=== PATIENT | female | born 1970 | race Caucasian/White ===

== ENCOUNTER 2016-10-23 00:03 | Inpatient (IN) | payer OTHER ==
--- NOTE | ~2016-10-23 | PN ---
Unit #: [id number] #: [id number] Patient: KLARISSA MORELAND [id number] [facility] [address] [place] [address] [id number] I MR#: [id number] NAME: KLARISSA MORELAND ROOM: P209 Age: 46 Sex: F Admission Date: 10/23/2016 : 1970 Attending Physician: Yang Christianson M.D. Admitting Physician: Yang Christianson M.D. Primary Care Physician: Primary Care Physician Sissy ALCARAZ PROGRESS NOTES DATE 10/24/2016 DISCUSSION The patient continues to complain of severely depressed mood and poor sleep. She is voicing ongoing suicidal ideation. We will begin upward titration of Topamax today. Dictated by... Yang Christianson M.D. CB/andrea TD: 10/24/2016 15:09 JOB #: [id number] [facility] PROGRESS NOTES X Yang Christianson MD PROGRESS NOTE
--- NOTE | ~2016-10-23 | PN ---
Unit #: [id number] #: [id number] Patient: KLARISSA MORELAND [id number] [facility] [address] [place] [address] [id number] I MR#: [id number] NAME: KLARISSA MORELAND ROOM: P205 Age: 46 Sex: F Admission Date: 10/23/2016 : 1970 Attending Physician: Yang Christianson M.D. Admitting Physician: Yang Christianson M.D. Primary Care Physician: Primary Care Physician Sissy ALCARAZ PROGRESS NOTES DATE 10/29/2016 DISCUSSION The patient is a bit brighter today and states that she slept better last evening. She is more active in the therapeutic milieu and is reporting reduction in suicidal ideation. She is hopeful that she will qualify for residential chemical dependence treatment but states that she will be ready for discharge tomorrow whatever the case. Dictated by... Yang Christianson M.D. CB/rodríguez TD: 10/29/2016 14:19 JOB #: [id number] [facility] PROGRESS NOTES X Yang Christianson MD PROGRESS NOTE
--- NOTE | ~2016-10-23 | DS ---
Unit #: [id number] #: [id number] Patient: KLARISSA MORELAND [id number] [place] [address] [id number] MR#: [id number] NAME: KLARISSA MORELAND. ROOM: P205 Age: 46 Sex: F Admission Date: 10/23/2016 : 1970 Discharge Date: 10/30/2016 Attending Physician: Yang Christianson M.D. Primary Care Physician: Primary Care Physician No DISCHARGE SUMMARY REASON FOR ADMISSION The patient is a 46-year-old white female, admitted to the [address] [place] [address] unit with a history of depression and ongoing abuse of alcohol. HOSPITAL COURSE The patient was admitted to the [address] [place] [address] unit and gradually restarted on previously prescribed medications including Topamax and Sinequan. Her detox was an uneventful one, but she remained seclusive to room throughout much of her stay in the hospital complaining of severely depressed mood. She was encouraged to increase participation within therapeutic milieu and hopes of advancing her sleep-wake cycle. She was begun on melatonin 5 mg at 6:00 p.m. The patient seemed to do better with this medication change and by 10/30/2016 was in brighter spirits. She requested discharge on that date and was agreeable with plan for followup in the chemical dependency intensive outpatient program provided by this facility. Discharge was ordered. FINAL DIAGNOSES Alcohol use disorder, dysthymic disorder. DISPOSITION ON DISCHARGE The patient is discharged on the following medications; Topamax 150 mg b.i.d. for anxiety and Sinequan 25 mg at h.s. for insomnia. DISCHARGE INSTRUCTIONS No dietary or physical restrictions were placed on the patient at the time of discharge. FOLLOWUP Followup will take place through the auspices of community mental health resources and she will be referred to the chemical dependency intensive outpatient program. PROGNOSIS Her prognosis is considered fair. Dictated by... Yang Christianson M.D. MAYE/ronel TD: 10/30/2016 22:31 Unit #: [id number] #: [id number] Patient: KLAIRSSA MORELAND JOB #: [id number] DISCHARGE SUMMARY X Yang Christianson MD DISCHARGE SUMMARY
--- NOTE | ~2016-10-23 | PN ---
Unit #: [id number] #: [id number] Patient: KLARISSA MORELAND [id number] [facility] [address] [place] [address] [id number] I MR#: [id number] NAME: KLARISSA MORELAND ROOM: P205 Age: 46 Sex: F Admission Date: 10/23/2016 : 1970 Attending Physician: Yang Christianson M.D. Admitting Physician: Yang Christianson M.D. Primary Care Physician: Primary Care Physician Sissy ALCARAZ PROGRESS NOTES DATE 10/27/2016 DISCUSSION The patient continues to complain of poor sleep but is frequently napping. I will go ahead and increase her Topamax to her previous dose of 150 mg twice daily and we will add a dose of melatonin at 6 p.m. in hopes of advancing the patient's sleep like cycle. Dictated by... Yang Christianson M.D. CB/samia TD: 10/28/2016 01:38 JOB #: [id number] [facility] PROGRESS NOTES X Yang Christianson MD PROGRESS NOTE
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
--- NOTE | ~2016-10-23 | PN ---
Unit #: [id number] #: [id number] Patient: KLARISSA MORELAND [id number] [facility] [address] [place] [address] [id number] I MR#: [id number] NAME: KLARISSA MORELAND ROOM: P205 Age: 46 Sex: F Admission Date: 10/23/2016 : 1970 Attending Physician: Yang Christianson M.D. Admitting Physician: Yang Christianson M.D. Primary Care Physician: Primary Care Physician Sissy VYAS NOTES DATE 10/26/2016 DISCUSSION The patient is abed resting comfortably today. Staff reports no issues with withdrawal, and the patient does seem to have slept better with initiation of increased Seroquel. Dictated by... Yang Christianson M.D. CB/rodrígeuz TD: 10/26/2016 13:23 JOB #: [id number] LISSA PROGRESS NOTES X Yang Christianson MD PROGRESS NOTE
--- NOTE | ~2016-10-23 | HP ---
Unit #: [id number] #: [id number] Patient: KLARISSA MORELAND [id number] [place] [address] [id number] MR#: [id number] NAME: KLARISSA MORELAND ROOM: P209 Age: 46 Sex: F Admission Date: 10/23/2016 : 1970 Attending Physician: Yang Christianson M.D. Admitting Physician: Yang Christianson M.D. Primary Care Physician: Primary Care Physician No HISTORY AND PHYSICAL HISTORY OF PRESENT ILLNESS Klarissa is a 46 year old admitted to [address] [place] [address] because of her continued abuse of alcohol. She has had other admissions to this facility for the same. PAST MEDICAL HISTORY 1. Long history of alcohol abuse. 2. High blood pressure. PAST SURGICAL HISTORY 1. Fractured left forearm with ORIF. 2. Tubal ligation. ALLERGIES No known drug allergies. SOCIAL HISTORY Smokes 1 pack per day. Drinks at least a fifth of liquor on a daily basis and admits to using marijuana on occasion. FAMILY HISTORY Medically noncontributory. REVIEW OF SYSTEMS CONSTITUTIONAL: No fever or chills. HEENT: Denies any sore throat, ear pain or runny nose. CARDIOVASCULAR: Denies chest pain, irregular heart rhythm or palpitations. CHEST: Denies shortness of breath or cough. No hemoptysis. GASTROINTESTINAL: Denies nausea, vomiting, diarrhea or chronic constipation. ENDOCRINE: Denies history of increased thirst or urination. No recent significant weight loss or gain. GENITOURINARY: Denies dysuria, frequency, or hematuria. SKIN: Denies any rashes. HEMATOLOGIC: Denies history of increased bleeding or bruising. MUSCULOSKELETAL: Denies any hot, swollen joints. No generalized muscle pain. NEUROLOGIC: Denies problems with vision or speech. No frequent, severe headaches. No numbness, tingling or weakness in any extremities. Denies loss of bladder or bowel control. CURRENT MEDICATIONS 1. Detox protocol. 2. Multivitamin 1 daily. Unit #: [id number] #: [id number] Patient: KLARISSA MORELAND 3. Levaquin 500 mg daily x7 days. PHYSICAL EXAMINATION GENERAL: Alert, well-nourished, in no apparent distress. VITAL SIGNS: Blood pressure 120/70, heart rate 80, respirations 16, temperature 98.6. WEIGHT: 140. HEIGHT: 5 feet 2 inches. SKIN: Warm and dry without rash or lesion. HEENT: Normocephalic. TMs not viewed. Oral and nasal passages clear. Conjunctivae clear. PERRLA. EOMs intact. Right pinna and canal with dry, red, irritated skin. NECK: Supple without lymphadenopathy or thyromegaly. HEART: Regular rate and rhythm without murmur. LUNGS: Clear. ABDOMEN: Soft, nontender. : Not done. EXTREMITIES: No evidence of cyanosis, clubbing or edema. Moves all without focal deficit. NEUROLOGICAL: Grossly within normal limits. Cranial Nerves: II: Visual wilkins are intact. III, IV AND : Extraocular movements are intact. Pupils are equal, round and reactive to light. V: Facial sensation is grossly normal. VII: Facial movements and expression are normal. VIII: Auditory acuity grossly intact. IX, X: Uvula is midline. Phonation is normal. XI: Patient shrugs shoulders and turns head normally. XII: Tongue protrudes in the midline. Sensory and Motor Function: Sensory and motor sensation is grossly normal. Motor: moves all extremities well. Coordination: Gait is normal. Deep Tendon Reflexes: Intact. IMPRESSION 1. Psychiatric admission. 2. Alcohol abuse. 3. Cellulitis, right ear. RECOMMENDATIONS PSYCHIATRIC: Per psychiatrist. MEDICAL: 1. See no contraindications to participate in facility's activities. 2. Detox per protocol. 3. Continue Levaquin. MEDICAL PROGNOSIS Good. MEDICAL CONDITION Stable. Dictated by... Courtney IrelandACiara-Frederic. for [facility]/formerly [facility] Unit #: [id number] #: [id number] Patient: KLARISSA MORELAND TD: 10/23/2016 17:44 JOB #: [id number] HISTORY AND PHYSICAL X Gemma Rodgers HISTORY AND PHYSICAL
--- NOTE | ~2016-10-23 | PA ---
Unit #: [id number] #: [id number] Patient: KLARISSA MORELAND [id number] [place] [address] [id number] I MR#: [id number] NAME: KLARISSA MORELAND ROOM: P209 Age: 46 Sex: F Admission Date: 10/23/2016 : 1970 Date of Assessment: 10/23/2016 Attending Physician: Yang Christianson M.D. Admitting Physician: Yang Christianson M.D. Primary Care Physician: Primary Care Physician No PSYCHIATRIC ASSESSMENT IDENTIFYING INFORMATION The patient is a 46-year-old white female admitted to the [facility] with recurrent suicidal ideation and alcohol use. CHIEF COMPLAINT None given. INFORMANT(S) Patient, reliability is fair. HISTORY OF PRESENT ILLNESS The patient is a 46-year-old white female last cared for at this facility by Dr. Jigar Macdonald in 2014. She is admitted with recurrent alcohol use, suicidal ideation, and states that she has been off prescribed medications for some time. The patient had previously been prescribed Topamax and had done well on this medication but has been off medication since April secondary to her having "lost her passport." The patient reports current suicidal ideation related to her homeless status. She states that she is drinking about 1 to 2 fifths of hard liquor on a daily basis. She denies abuse of other psychoactive substances. For more complete history of present illness, please refer to previously dictated notes. PAST PSYCHIATRIC HISTORY Reviewed, no changes. PAST MEDICAL HISTORY Reviewed, no changes. MEDICATION Levaquin for urinary tract infection. ALLERGIES Latex. FAMILY HISTORY Reviewed, no changes. SOCIAL HISTORY Reviewed, no changes. MENTAL STATUS EXAMINATION Examination at this time reveals the patient to be an obese white female Unit #: [id number] #: [id number] Patient: KLARISSA MORELAND appearing stated age. She is in no apparent physical distress at the time of examination. She is awake, alert, and oriented in all spheres. Her mood is mildly dysphoric, her affect constricted. Speech is generally well coherent. No gross deficits in memory or cognition noted. Intelligence is judged to be in the average range, based on fund of knowledge. The patient is cooperative throughout the interview. She is currently endorsing positive suicidal ideation. She denies homicidal ideation. She denies any psychotic symptoms. Her judgment and insight appear to be intact. ASSETS AND LIABILITIES The patient's assets: Motivation for change. Liabilities: Lack of resources. DIAGNOSTIC IMPRESSION 1. Alcohol use disorder. 2. Dysthymic disorder. 3. Urinary tract infection. TREATMENT PLAN The patient remains hospitalized for safety and stabilization. Suicide precautions remain in place, and we have initiated a routine detoxification protocol for alcohol. I will restart the patient's previously prescribed Focalin. She will participate in appropriate order of milieu activities. ESTIMATED LENGTH OF STAY 5 to 7 days. Dictated by... Yang Christianson M.D. Pita TD: 10/23/2016 13:55 JOB #: [id number] PSYCHIATRIC ASSESSMENT X Yang Christianson MD X PSYCHIATRIC ASSESSMENT
--- NOTE | ~2016-10-23 | PN ---
Unit #: [id number] #: [id number] Patient: KLARISSA MORELAND [id number] [facility] [address] [place] [address] [id number] I MR#: [id number] NAME: KLARISSA MORELAND ROOM: P205 Age: 46 Sex: F Admission Date: 10/23/2016 : 1970 Attending Physician: Yang Christianson M.D. Admitting Physician: Yang Christianson M.D. Primary Care Physician: Primary Care Physician Sissy ALCARAZ PROGRESS NOTES DATE 10/28/2016 DISCUSSION The patient reports worsening depression today and reports increasing suicidal ideation. I will increase her suicidal precautions to SP2 and may consider addition of any antidepressant medication though we have at this point just restarted the patient's Topamax at its previously affective dose. She exhibits no signs or symptoms of withdrawal. Dictated by... Yang Christianson M.D. CB/samia TD: 10/28/2016 20:04 JOB #: [id number] [facility] PROGRESS NOTES X Yang Christianson MD PROGRESS NOTE
[~2016-10-23 00:03] MED LIST: AMOXICILLIN PO; AUGMENTIN PO; BENZONATATE PO; CELEXA PO; CIPRO PO; CIPRODEX OTIC7.5 ML OT; FERGON240 ( 27 ) PO; FLOXIN10 ML OT; FLOXIN20 EA AD; IBUPROFEN PO; IBUPROFEN600 MG PO; LEVAQUIN PO; LISINOPRIL10 MG PO; LORTAB 10-5001 EACH PO; LORTAB 5/500 TA1 TA1 PO; LORTAB 5/500 TA1 TA2 PO; MOBIC PO; NO MEDICATIONS; PREDNISONE PO; PREDNISONE10 MG/DOSE PO; PROVERA PO; TOPAMAX PO; TRAZODONE PO; TYLOX 5/500 CAP1 CAP PO; ULTRAM PO; VICODIN 5/500 T1 TAB PO; VOLTAREN75 MG PO; ZANTAC150 MG PO
== END 2016-10-30 19:20 | disposition home or self-care (01) | DRG 897 ==
LOC: P2S 00:03
PROC: HZ2ZZZZ Detoxification Services for Substance Abuse Treatment (ICD-10-PCS; principal; 2016-10-23)
DX: F10.20 Alcohol dependence, uncomplicated (principal); I85.00 Esophageal varices without bleeding; R45.851 Suicidal ideations; N39.0 Urinary tract infection, site not specified; F34.1 Dysthymic disorder; I10 Essential (primary) hypertension; F17.200 Nicotine dependence, unspecified, uncomplicated; H60.11 Cellulitis of right external ear; G47.00 Insomnia, unspecified; K70.30 Alcoholic cirrhosis of liver without ascites; Z79.899 Other long term (current) drug therapy
CPT/HCPCS: 86592

== ENCOUNTER 2016-11-12 21:54 | Emergency (ER) | payer OTHER ==
--- NOTE | ~2016-11-12 | CT114 ---
[facility] A Service of [facility] RADIOLOGY TEXT RESULTS PATIENT: KLARISSA MORELAND LOCATION: [place] : [birth year] UNIT #: [id number] AGE: [address]: Foster Turner MD SEX: F ORDER DR: [id number] [facility] [address] [place], [place] [address] [id number] MR#: [id number] Acc #: [id number] NAME: KLARISSA MORELAND : 1970 SEX: F STUDY DATE/TIME: 11/13/2016 3:12 UNIT: [place] ROOM: STUDY DESCRIPTION: CT Soft Tissue Neck W Cont Attending Physician: Foster Turner M.D. Ordering Physician: Douglas Ortega D.O. Primary Care Physician: Primary Care Physician No MEDICAL IMAGING REPORT This report is preliminary unless electronic signature is present EXAM CT soft tissue neck with contrast 11/13/2016 HISTORY 46-year-old female in the ED with new onset right-side neck pain, swelling, cellulitis, beginning earlier this morning. TECHNIQUE CT examination of the neck with IV contrast from the skull base through the thoracic inlet. Multiplanar images were reconstructed. This CT examination was performed with one or more of the following radiation dose reduction techniques: automatic exposure control, adjustment of mA and/or kV according to patient size, and iterative reconstruction. FINDINGS The examination shows evidence of subcutaneous inflammation in the submental portion of the neck below the floor of the mouth, including skin thickening and subcutaneous soft tissue stranding. However, there is no visible abscess. There is no obvious source for this inflammation, such as odontogenic bony destructive process, sialadenitis or peritonsillar or pharyngeal abscess. Mildly enlarged lymph nodes throughout the upper neck, particularly in the submandibular region are nonspecific but likely inflammatory. The palatine tonsils are slightly enlarged. Salivary glands and thyroid gland are normal in size and appearance. IMPRESSION CT findings suggesting at least mild cellulitis in the midline submental neck below the floor of the mouth as described above. No abscess or other soft tissue fluid collection is demonstrated at this time. There is no obvious odontogenic source for infection, but correlation with dental and oral findings on physical exam is recommended. There is no evidence of acute sialadenitis. The palatine tonsils are mildly enlarged, and there is mild submandibular region adenopathy that is likely reactive. [facility] A Service of [facility] RADIOLOGY TEXT RESULTS PATIENT: KLARISSA MORELAND LOCATION: [facility] : [birth year] UNIT #: [id number] AGE: [address]: Foster Turner MD SEX: F ORDER DR: Dictated by... Charlie Camara M.D. THIS IS AN ELECTRONICALLY VERIFIED REPORT Charlie Camara M.D. at 11/13/2016 10:06 PM BEBA/frederick TD: 11/13/2016 13:24 JOB #: [id number] MEDICAL IMAGING REPORT Page 1 of 1 COPY
[2016-11-12 23:09] LABS: AMPHETAMINE POS (NEG); BARBITURATES NEG (NEG); BENZODIAZEPINES NEG (NEG); COCAINE NEG (NEG); MARIJUANA POS (NEG); OPIATES NEG (NEG); TRICYCLIC ANTIDEPRESSANTS NEG (NEG); U METHADONE NEG (NEG)
[2016-11-13 01:24] LABS: BASOPHIL% 0.3 % (0-2.5); EOSINOPHIL# 0.2 X10e3 (0-0.7); EOSINOPHIL% 1.8 % (0.0-7.0); HEMATOCRIT 29.5 % (35.0-45.0); HEMOGLOBIN 9.1 gm/dL (12.0-16.0); LYMPHOCYTE# 2.2 X10e3 (1.0-3.5); LYMPHOCYTE% 19.8 % (17.0-45.0); MEAN CELL VOLUME 71.2 FL (83-96); MEAN CORPUSCULAR HEMOGLOBIN 21.9 PG (28-34); MEAN CORPUSCULAR HGB CONC 30.7 g/dL (30-36); MEAN PLATELET VOLUME 7.1 FL (6.5-11.5); MONOCYTE# 0.9 X10e3 (0-1.0); MONOCYTE% 8.2 % (3.0-12.0); NEUTROPHIL# 7.8 X10e3 (1.5-7.1); NEUTROPHIL% 69.9 % (40-75); PLATELET COUNT 352 X10e3 (140-420); RED BLOOD COUNT 4.14 X10e (3.90-5.30); RED CELL DISTRIBUTION WIDTH 21.7 % (11.0-15.5); WHITE BLOOD COUNT 11.2 X10e3 (4.0-10.5)
[2016-11-13 01:26] LABS: DIFF IND NO
[2016-11-13 01:42] LABS: ACETAMINOPHEN <10 ug/mL; ALBUMIN SERUM 3.4 g/dL (3.5-5.0); ALCOHOL BLOOD <5 mg/dL (0); ALKALINE PHOSPHATASE 116 U/L (32-92); ALT (SGPT) 45 U/L (10-40); AST (SGOT) 70 U/L (10-42); BILIRUBIN, DIRECT 0.1 mg/dL (0.0-0.2); BILIRUBIN,INDIRECT 0.3 mg/dL (0.0-0.9); BILIRUBIN,TOTAL 0.4 mg/dL (0.2-2.0); BLOOD UREA NITROGEN 15 mg/dL (9-23); CALCIUM SERUM 8.6 mg/dL (8.4-10.2); CARBON DIOXIDE 18 mmol/L (22-31); CHLORIDE 110 mmol/L (100-111); CREATININE SERUM 0.6 mg/dL (0.6-1.4); GLOM FILT RATE Estimated ABOVE60 mL/min (>60); GLUCOSE FASTING 99 mg/dL (70-110); POTASSIUM 3.2 mmol/L (3.5-5.1); PROTEIN TOTAL SERUM 7.8 g/dL (6.0-8.3); SALICYLATE <4.0 mg/dL; SODIUM 135 mmol/L (135-145)
== END 2016-11-13 07:30 | disposition short-term general hospital (02) ==
LOC: CFTX 21:54
PROVIDERS: Emergency Medicine
DX: F32.9 Major depressive disorder, single episode, unspecified (principal); R45.851 Suicidal ideations; L03.221 Cellulitis of neck; F17.210 Nicotine dependence, cigarettes, uncomplicated; Z91.040 Latex allergy status
CPT/HCPCS: 36415; 70491; 80048; 80076; 80307; 84703; 85025; 96361; 96365; 96368; 99285; G0480; J3370; Q9967

== ENCOUNTER 2016-11-13 08:09 | Inpatient (IN) | payer OTHER ==
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
--- NOTE | ~2016-11-13 | DS ---
Unit #: [id number] #: [id number] Patient: KLARISSA MORELAND [id number] [facility] [address] [place] [address] [id number] I MR#: [id number] NAME: KLARISSA MORELAND ROOM: 30 Age: 46 Sex: F Admission Date: 11/13/2016 : 1970 Discharge Date: 11/19/2016 Attending Physician: Jigar Macdonald M.D. Primary Care Physician: Primary Care Physician No DISCHARGE SUMMARY REASON FOR ADMISSION Klarissa is a 46-year-old woman, well known to me from previous admissions with a history of bipolar disorder and polysubstance dependence. She was recently discharged from this hospital by Dr. Christianson to the [facility], but came in reporting that she had been using amphetamines and felt increasingly hopeless, helpless and was admitted for suicidal ideation. DIAGNOSTIC STUDIES LABORATORY RESULTS: Please see hospital chart. HOSPITAL COURSE The patient was admitted and placed on suicide and psychosis precautions. Topamax was continued and Geodon 20 mg b.i.d. was added. She tolerated this with no significant adverse side effects and was later increased to 40 mg at bedtime for improved effect. Her mood eventually stabilized as her affect became brighter and she participated more appropriately in unit groups and activities. On the date of discharge, she was able to contract for safety with no further suicidal ideation, intent, or plan. DISCHARGE DIAGNOSES AXIS I: Bipolar disorder, depressed; polysubstance dependence. AXIS II: Borderline traits. AXIS III: None acute. AXIS IV: AXIS V: PSYCHIATRIC PLAN Follow up with [facility]. DISCHARGE MEDICATIONS Topamax 150 mg b.i.d. for mood stability, Geodon 40 mg b.i.d. for mood stability, Sinequan 25 mg at bedtime as needed for insomnia. CONDITION AT DISCHARGE Improved. PROGNOSIS Fair to good. DIET AND ACTIVITY Ad bud. Unit #: [id number] #: [id number] Patient: KLARISSA MORELAND Dictated by... Jigar Macdonald M.D. [facility]/babatundel TD: 11/21/2016 01:33 JOB #: [id number] DISCHARGE SUMMARY Page 1 of 1 X Jigar Macdonald MD DISCHARGE SUMMARY
--- NOTE | ~2016-11-13 | PN ---
Unit #: [id number] #: [id number] Patient: KLARISSA MORELAND [id number] [facility] [address] [place] [address] [id number] I MR#: [id number] NAME: KLARISSA MORELAND ROOM: P130 Age: 46 Sex: F Admission Date: 11/13/2016 : 1970 Attending Physician: Jigar Macdonald M.D. Admitting Physician: Jigar Macdonald M.D. Primary Care Physician: Primary Care Physician Sissy ALCARAZ PROGRESS NOTES DATE OF SERVICE: 11/17/2016 DISCUSSION Klarissa continues to have mood lability and is anxious and dysphoric today. She is tolerating Geodon with no significant adverse side effects. She is alert and fully oriented with fair memory and concentration and no active psychosis, but ongoing SI. ASSESSMENT Bipolar depressed. PLAN We will increase Geodon to 40 mg b.i.d. and monitor for response. Dictated by... Max ViramontesH/ronel TD: 11/21/2016 02:35 JOB #: [id number] [facility] PROGRESS NOTES Page 1 of 1 X Jigar Macdonlad MD PROGRESS NOTE
--- NOTE | ~2016-11-13 | PN ---
Unit #: [id number] #: [id number] Patient: KLARISSA MORELAND [id number] [facility] [address] [place] [address] [id number] I MR#: [id number] NAME: KLARISSA MORELAND ROOM: P110 Age: 46 Sex: F Admission Date: 11/13/2016 : 1970 Attending Physician: Jigar Macdonald M.D. Admitting Physician: Jigar Macdonald M.D. Primary Care Physician: Primary Care Physician Sissy ALCARAZ PROGRESS NOTES DATE 11/15/2016 DISCUSSION Klarissa continues to have some mood lability but reduced psychosis. 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 She is alert and fully oriented. Memory and concentration are only fair and her thought processes are concrete but nonpsychotic today. ASSESSMENT Bipolar mixed. PLAN Continue current treatment plan. Dictated by... Max Viramontes/samia TD: 11/16/2016 20:17 JOB #: [id number] [facility] PROGRESS NOTES Page 1 of 1 X Jigar Macdonald MD PROGRESS NOTE
--- NOTE | ~2016-11-13 | PN ---
Unit #: [id number] #: [id number] Patient: KLARISSA MORELAND [id number] [facility] [address] [place] [address] [id number] I MR#: [id number] NAME: KLARISSA MORELAND ROOM: P130 Age: 46 Sex: F Admission Date: 11/13/2016 : 1970 Attending Physician: Jigar Macdonald M.D. Admitting Physician: Jigar Macdonald M.D. Primary Care Physician: Primary Care Physician Sissy ALCARAZ PROGRESS NOTES DATE 11/18/2016 DISCUSSION Klarissa is tolerating her increased dose of Geodon with no adverse side effects. Her affect is a little brighter with better grooming and participation in groups and activities today. She is alert and fully oriented with no psychosis. She is equivocal about suicidal ideation. ASSESSMENT Bipolar, depressed. PLAN Continue current medications, anticipating discharge tomorrow. Dictated by... Max Viramontes/dzh TD: 11/22/2016 23:05 JOB #: [id number] [facility] PROGRESS NOTES Page 1 of 1 X Jigar Macdonald MD X PROGRESS NOTE
--- NOTE | ~2016-11-13 | HP ---
Unit #: [id number] #: [id number] Patient: KLARISSA MORELAND [id number] [facility] [address] [place] [address] [id number] I MR#: [id number] NAME: KLARISSA MORELAND ROOM: P110 Age: 46 Sex: F Admission Date: 11/13/2016 : 1970 Attending Physician: Jigar Macdonald M.D. Admitting Physician: Jigar Macdonald M.D. Primary Care Physician: Primary Care Physician No HISTORY AND PHYSICAL NOTE Klarissa is a 46 year old admitted to [address] [place] [address] with depression and verbalizing wanting to hurt herself. She was discharged from this facility. The patient was seen and H and P dated 10/23/2016 was reviewed. This is current. No changes. Please see H and P dated 10/23/2016. Dictated by... Gemma Rodgers P.A.-C. for Max Wagoner/samia TD: 11/13/2016 23:37 JOB #: [id number] HISTORY AND PHYSICAL Page 1 of 1 X Gemma Rodgers HISTORY AND PHYSICAL
--- NOTE | ~2016-11-13 | PN ---
Unit #: [id number] #: [id number] Patient: KLARISSA MORELAND [id number] [facility] [address] [place] [address] [id number] I MR#: [id number] NAME: KLARISSA MORELAND ROOM: P130 Age: 46 Sex: F Admission Date: 11/13/2016 : 1970 Attending Physician: Jigar Macdonald M.D. Admitting Physician: Jigar Macdonald M.D. Primary Care Physician: Primary Care Physician Sissy ALCARAZ PROGRESS NOTES DATE 11/14/2016 DISCUSSION Klarissa is sleeping heavily this morning and awakens only ____ for an interview. She continues to voice suicidal ideation, says that she is unable to contract for safety. She is compliant medications with no significant adverse side effects. She appears alert and fully oriented with no evidence of psychosis that she presented with in the hospital. ASSESSMENT Bipolar, mixed. PLAN Continue current medications and precaution levels. Dictated by... Max Viramontes/andrea TD: 11/22/2016 22:47 JOB #: [id number] [facility] PROGRESS NOTES Page 1 of 1 X Jigar Macdonald MD PROGRESS NOTE
== END 2016-11-19 16:39 | disposition home or self-care (01) | DRG 885 ==
LOC: P1S 08:09
DX: F31.9 Bipolar disorder, unspecified (principal); I10 Essential (primary) hypertension; F60.3 Borderline personality disorder; K21.9 Gastro-esophageal reflux disease without esophagitis; Z91.040 Latex allergy status; F17.210 Nicotine dependence, cigarettes, uncomplicated

== ENCOUNTER 2017-03-03 10:41 | Emergency (ER) | payer OTHER ==
[2017-03-03 11:30] LABS: BASOPHIL# 0.1 X10e3 (0-0.3); BASOPHIL% 1.2 % (0-2.5); EOSINOPHIL# 0.2 X10e3 (0-0.7); EOSINOPHIL% 1.9 % (0.0-7.0); HEMOGLOBIN 10.1 gm/dL (12.0-16.0); LYMPHOCYTE# 2.1 X10e3 (1.0-3.5); LYMPHOCYTE% 25.1 % (17.0-45.0); MEAN CELL VOLUME 70.6 FL (83-96); MEAN CORPUSCULAR HEMOGLOBIN 21.5 PG (28-34); MEAN CORPUSCULAR HGB CONC 30.5 g/dL (30-36); MONOCYTE# 0.7 X10e3 (0-1.0); NEUTROPHIL# 5.2 X10e3 (1.5-7.1); NEUTROPHIL% 62.8 % (40-75); PLATELET COUNT 356 X10e3 (140-420); RED BLOOD COUNT 4.68 X10e (3.90-5.30); RED CELL DISTRIBUTION WIDTH 20.5 % (11.0-15.5); WHITE BLOOD COUNT 8.2 X10e3 (4.0-10.5)
[2017-03-03 11:34] LABS: DIFF IND NO
[2017-03-03 12:07] LABS: BILIRUBIN, DIRECT 0.1 mg/dL (0.0-0.2); BILIRUBIN,INDIRECT 0.5 mg/dL (0.0-0.9); BILIRUBIN,TOTAL 0.6 mg/dL (0.2-2.0); CALCIUM SERUM 8.7 mg/dL (8.4-10.2); CREATININE SERUM 0.6 mg/dL (0.6-1.4); GLOM FILT RATE Estimated 107.8 mL/min (>60); POTASSIUM 3.7 mmol/L (3.5-5.1); PROTEIN TOTAL SERUM 8.5 g/dL (6.0-8.3)
[2017-03-03 12:09] LABS: URINE APPEARANCE CLOUDY; URINE BILIRUBIN NEG (NEG); URINE BLOOD NEG (NEG); URINE COLOR DK YELLOW; URINE GLUCOSE NEG (NEG); URINE KETONE NEG (NEG); URINE LEUKOCYTE ESTERASE 2+ (NEG); URINE NITRATE POS (NEG); URINE PROTEIN TRACE (NEG); URINE SPECIFIC GRAVITY 1.024 (1.003-1.035)
[2017-03-03 12:11] LABS: CULTURE INDICATED? YES; URBCS1 AUWI 0-2 /[HPF] (0-2); URINE BACTERIA AUWI 4+ (NEGATIVE); URINE SQUAMOUS EPITHELIAL CELL OCC /[HPF]; UWBCS1 AUWI 25-50 (0-5)
[2017-03-03 12:36] LABS: AMPHETAMINE POS (NEG); BARBITURATES NEG (NEG); BENZODIAZEPINES NEG (NEG); COCAINE NEG (NEG); MARIJUANA NEG (NEG); OPIATES NEG (NEG); TRICYCLIC ANTIDEPRESSANTS NEG (NEG); U METHADONE NEG (NEG)
[2017-03-03 12:42] LABS: URINE MUCUS PRESENT; URINE YEAST PRESENT
[2017-03-03 12:43] LABS: URINE SOURCE CATH
== END 2017-03-03 13:43 | disposition home or self-care (01) ==
LOC: CED 10:41
PROVIDERS: Emergency Medicine
DX: F15.129 Other stimulant abuse with intoxication, unspecified (principal); N39.0 Urinary tract infection, site not specified; F31.9 Bipolar disorder, unspecified; F17.200 Nicotine dependence, unspecified, uncomplicated; Z79.899 Other long term (current) drug therapy; Z91.040 Latex allergy status
CPT/HCPCS: 36415; 51701; 80048; 80076; 80307; 81003; 82550; 82947; 85025; 87086; 87088; 87186; 96372; 99284; G0480; J3486